=== PATIENT | female | born 1955 | race Caucasian/White ===

== ENCOUNTER 2017-03-02 14:12 | Day surgery (SDC) | payer MEDICARE, OTHER ==
[~2017-03-02] VITALS: Ht 157.5 cm; Wt 98.0 kg
[~2017-03-02 14:12] MED LIST: ALBU17IN INH; ALBU83IN INH; ALPR0.5T3 PO; BUSP15TA47 PO; COLA100C5 PO; FLUT1SPR2 INH; FURO40TA2 PO; GABA-282 PO; GENT0.1C2 TOP; LACT10SO3 PO; MIRA33504 PO; MONT10TA2 PO; OXYC10TA12 PO; RENV2TAB PO; SYMB80INH INH; ZOFR8TAB PO; ZOLO100T PO; ZOLP5TAB PO
[2017-03-02] MEDS ORDERED: NS 1,000 ML IV SCH ×2 (14:30)
[2017-03-02] MEDS ORDERED: GLYCOPYRROLATE INJ 0.2 MG/ML 2 ML VIAL As Ordered ONE (15:37)
[2017-03-02] MEDS ORDERED: ROCURONIUM BROMIDE 50 MG/5 ML VIAL/SYRINGE As Ordered ONE (15:37)
[2017-03-02] MEDS ORDERED: MIDAZOLAM INJ 2 MG/2 ML VIAL (J2250) As Ordered ONE (15:37)
[2017-03-02] MEDS ORDERED: PROPOFOL 200 MG/20 ML VIAL As Ordered ONE (15:37)
[2017-03-02] MEDS ORDERED: METOCLOPRAMIDE INJ 10MG/2ML VIAL (J2765) As Ordered ONE (15:37)
[2017-03-02] MEDS ORDERED: fentaNYL 250 MCG/5 ML INJECTION (J3010) As Ordered ONE (15:37)
[2017-03-02] MEDS ORDERED: ONDANSETRON 4MG/2ML VIAL (J2405) As Ordered ONE (15:37)
[2017-03-02] MEDS ORDERED: NEOSTIGMINE 1MG/ML 5 ML SYRINGE (J2710) As Ordered ONE (15:37)
[2017-03-02] MEDS ORDERED: LIDOCAINE 2% INJ 100 MG/5 ML SDV (FOR ANES.) As Ordered ONE (15:37)
[2017-03-02] MEDS ORDERED: BUPIVACAINE HCL 0.5% 30 ML VIAL As Ordered ONE (16:01)
[2017-03-02] MEDS ORDERED: LIDOCAINE 1% SDV INJ 30 ML VIAL As Ordered ONE (16:01)
[2017-03-02] MEDS ORDERED: DESFLURANE 240 ML INHALANT As Ordered ONE (16:41)
[2017-03-02] MEDS ORDERED: SEVOFLURANE INHAL SOLN 250 ML BTL As Ordered ONE (16:44)
[2017-03-02] MEDS ORDERED: ONDANSETRON 4MG/2ML VIAL (J2405) IV PRN (17:15)
[2017-03-02] MEDS ORDERED: fentaNYL 100 MCG/2 ML INJECTION (J3010) IV PRN (17:15)
[2017-03-02] MEDS ORDERED: LR 1,000 ML IV SCH (17:15)
[2017-03-02] MEDS ORDERED: MEPERIDINE INJ 25 MG/ML VIAL (J2175) IV PRN (17:15)
[2017-03-02] MEDS ORDERED: METOCLOPRAMIDE INJ 10MG/2ML VIAL (J2765) IV PRN (17:15)
[2017-03-02] MEDS: PERCOCET 5MG/325MG TAB PO PRN ×2 (17:24→17:59)
[2017-03-02 18:35] VITALS: BP 150/65
--- NOTE | 2017-03-16 11:31 | RO ---
DATE OF PROCEDURE: 03/02/2017 PREPROCEDURE DIAGNOSES: End stage renal disease, dysfunction peritoneal dialysis catheter. POSTPROCEDURE DIAGNOSES: End stage renal disease, dysfunction peritoneal dialysis catheter. PROCEDURE: Laparoscopic peritoneal dialysis catheter revision with suturing of the catheter to the anterior abdominal wall. SURGEON: Donny Patel MD [employer]ING [employer]ANE OPERATOR: ANESTHESIA: General endotracheal. ESTIMATED BLOOD LOSS: 25 mL. IV FLUIDS: 200 mL. HEPARIN: None. COMPLICATIONS: None. DRAINS: None. SPECIMENS: None. IMPLANTS: None. INDICATION: The patient is a 61-year-old female with abdominal pain after undergoing placement of a peritoneal dialysis catheter and suturing it to the wall in the right lower quadrant. The patient will undergo revision with evaluation and possible replacement of the catheter. Risks, benefits and alterative treatment options were discussed with the patient. Benefits included but were not limited to resolution of her symptoms. Risks included but were not limited to infection, bleeding, intraabdominal organ injury, necessitating exploratory laparotomy and possible need for removal of the catheter with replacement, cerebrovascular accident, myocardial infarction, pulmonary embolus, deep vein thrombosis (DVT), loss of limb, loss of life and poor outcome. The patient understands and accepts these risks and consents to proceed. DESCRIPTION OF PROCEDURE: The patient was taken to the operating room and placed supine on the operating room table and then prepped and draped in the standard surgical fashion. A time-out was conducted of myself and the members in the room confirming the correct patient, procedure and laterality. The abdomen was then insufflated through the existing the peritoneal dialysis catheter, after which a 5 mm port was placed in the left upper quadrant. The catheter was then evaluated with laparoscopy and noted to be adhesed to the anterior abdominal wall with the suture in place. The suture was removed and the catheter was moved to the midline and a new #2-0 Prolene suture was placed with an Endo Close. There was also fibrin within the catheter, which was stripped out and removed. The catheter was then tested with 1 liter of saline, which returned easily on egress. The camera and ports were removed. The puncture wounds were closed using #3-0 interrupted Monocryl sutures. Steri-Strips and dressings were applied. The patient tolerated the procedure well. All instrument, sponge and needle counts were correct at the end of the case. There were no complications. Dr. Patel was present for and directed the entire case. The patient was transferred to the recovery room, awake, alert and extubated and in stable condition.
== END 2017-03-02 18:35 | disposition home or self-care (01) ==
LOC: M SDC 14:12
PROVIDERS: ATTEND Surgery Vascular Surgery
DX: T85.898A Other specified complication of other internal prosthetic devices, implants and grafts, initial encounter (principal); N18.6 End stage renal disease
CPT/HCPCS: 36415; 49325; 84132; J2250; J2405; J2710; J2765; J3010